=== PATIENT | male | born 1950 | race Caucasian/White ===

== ENCOUNTER 2017-10-06 16:30 | Emergency (ER) | payer OTHER ==
[~2017-10-06] VITALS: Ht 188 cm; Wt 109.8 kg
[2017-10-06 16:34] VITALS: BP 190/99
[2017-10-06] MEDS ORDERED: METF500T4 PO (17:04)
[2017-10-06] MEDS ORDERED: GLIM1TAB2 PO (17:04)
[2017-10-06] MEDS ORDERED: LISI-170 PO (17:04)
[2017-10-06] MEDS ORDERED: PIOG15TA22 PO (17:04)
[2017-10-06] MEDS ORDERED: ONDANSETRON 2MG/ML, 2ML ONE (17:41)
[2017-10-06] MEDS ORDERED: ONDANSETRON 2MG/ML, 2ML IVPush ONE (18:00)
[2017-10-06] MEDS ORDERED: SODIUM CHLORIDE 0.9% 1,000ML IVBOLUS ONE (18:00)
[2017-10-06] MEDS ORDERED: MORPHINE SULFATE 4 MG/ML, 1ML IVPush ONE (18:30)
[2017-10-06] MEDS ORDERED: OXYcodone IR 5MG TABLET ONE (19:26)
[2017-10-06] MEDS ORDERED: OXYcodone IR 5MG TABLET PO ONE (19:30)
== END 2017-10-06 20:00 | disposition home or self-care (01) ==
LOC: ED 19:10
DX: S06.0X0A Concussion without loss of consciousness, initial encounter (principal); S01.01XA Laceration without foreign body of scalp, initial encounter; S16.1XXA Strain of muscle, fascia and tendon at neck level, initial encounter; S00.03XA Contusion of scalp, initial encounter; R41.3 Other amnesia; I10 Essential (primary) hypertension; E11.9 Type 2 diabetes mellitus without complications; Z87.891 Personal history of nicotine dependence; W19.XXXA Unspecified fall, initial encounter; Y93.89 Activity, other specified; Y92.89 Other specified places as the place of occurrence of the external cause; Y99.8 Other external cause status
CPT/HCPCS: 70450; 70486; 72072; 72125; 96374; 99284; J2405